=== PATIENT | female | born 1945 | race Caucasian/White ===

== ENCOUNTER 2024-12-02 13:13 | Outpatient (CLI) | payer MEDICARE, OTHER, SELFPAY ==
--- NOTE | 2024-12-02 13:23 | XR_ITS ---
WS: [id number] SCREENING DEXA SCAN [employer] CLINICAL INFORMATION: POST MENOPAUSAL STATE FINDINGS: The L1-L4 bone mineral density measures 1.018 g/cm2. This corresponds to a T score score of -1.4 and Z score of 0.3. Left femoral neck bone mineral density measures 0.835 g/cm2. This corresponds to a T score of -1.4 and Z score of 0.5. Right femoral neck bone mineral density measures 0.884 g/cm2. This corresponds to a T score -1.0of and Z score of 0.9. Mean femoral neck bone mineral density measures 0.860 g/cm2. This corresponds to a T score of -1.2 and Z score of 0.7. XR/XR DEXA axial skeleton* [id number] IMPRESSION: Osteopenia lumbar spine. Osteopenia femoral necks. Patient's FRAX calculated 10 year probability for major osteoporotic fracture i s 15.3% and osteoporotic hip fracture is 4.3%.
== END 2024-12-02 13:14 | disposition home or self-care (01) ==
LOC: RAD 13:18
PROVIDERS: PCP Physician Assistant; Visit Provider Physician Assistant
DX: Z13.820 Encounter for screening for osteoporosis (principal); Z78.0 Asymptomatic menopausal state; M85.89 Other specified disorders of bone density and structure, multiple sites
CPT/HCPCS: 77080

== ENCOUNTER 2024-12-09 17:48 | Emergency (ER) | payer MEDICARE, OTHER, SELFPAY ==
--- OUTSIDE RECORDS SUMMARY | 2023-12-02 03:00 | XMS_ITS ---
Author Organization [facility] Address [address] [place] [address] Care Team Providers Care Management Professionals Name Role Phone Arelis Crawford MD Primary Care Provider Unavailab Shahrzad Gonzalez Unavailable [phone] Migration, Provider Unavailable Unavailable REASON FOR VISIT EMR-Alberto Encounters Encounter Location Date Provider Diagnosis Migrated_Facility 0 0 12/02/2023 Provider Migration Plan Of Treatment Medication Medication Name Sig Start Date Stop Date Notes Gabapentin 600 MG Tablet 1 Capsule Twice a Day Oral 202110/11/2021 Meloxicam 15 MG Tablet 1 Tablet Once a Day Oral 07/13/2021 10/11/2021 tiZANidine HCl 4 MG Tablet 1 Tablet Every Night Oral 07/1310/11/2021 Progress Notes * Eduarda HOLLY LDOB:1945 (79 yo F)Acc No.[id number]:12/02/2023 Patient: Eduarda COTTRELL :1945 A ge:78 Y S ex:Female Address:[address] [place] [address] [place], [id number] * Refills Stop Gabapentin Tablet, 600 MG, Oral, 1 Capsule Twice a Day Stop Meloxicam Tablet, 15 MG, Oral, 1 Tablet Once a Day Stop tiZANidine HCl Tablet, 4 MG, Oral, 1 Tablet Every Night Subjective: * Chief Complaints: * E MR-Alberto * * Date:
--- OUTSIDE RECORDS SUMMARY | 2023-12-03 03:00 | XMS_ITS ---
Author Organization [facility] Address [address] [place] [address] Care Team Providers Care Internet Ecommerce Specialist Name Role Phone Arelis Crawford MD Primary Care Provider Unavailab Shahrzad Gonzalez Unavailable [phone] Migration, Provider Unavailable Unavailable Allergies Allergen (clinical drug ingredient) Drug/Non Drug Allergy documented on EMR Reaction Allergy Type Onset Date Status IV DYE, IODINE CONTAINING (uncoded) Unknown Allergy Active Substance with sulfonamide structure and antibacterial mechanism of action (substance) SULFA (SULFONAMIDE ANTIBIOTICS) (uncoded) Unknown Allergy Active lisinopril Lisinopril , Edema of face (finding) , Drug Allergy Active Iodine Unknown Drug Allergy Active Substance with sulfonamide structure and antibacterial mechanism of action (substance) Sulfa Antibiotics Unknown Drug Allergy Active REASON FOR VISIT EMR-Alberto Medications Medication SIG (Take, Route, Frequency, Duration) Notes Start Date End Date Status Amlodipine *Reorder from Ct dispan for eRx and Interaction Alerts* Active Social History Social History Additional Details Category Social Info Options Details Migrated Social History Migrated Social History Alcoholic beverages? - No, Applying for disability? - No, Currently on disability? - No, Drug or substance abuse? - No, exposure to toxins/poisonous substances at work - No, Involved in any legal proceedings or lawsuits? - No, Marital Status - , Nonprescription drug use? - No, Participation in detoxification or rehabilitation - No, Smoking - No, Smoking status (MU) - <BLANK>, Working currently? - No Encounters Encounter Location Date Provider Diagnosis Migrated_Facility 0 0 12/03/2023 Provider Migration Plan Of Treatment No Information Progress Notes * Eduarda HOLLYOB:1945 (79 yo F)Acc No.[id number]:12/03/2023 Patient: Eduarda COTTRELL :1945 A ge:78 Y S ex:Female Address:[address] [place] [id number] Subjective: * Chief Complaints: * E MR-Albetro * Medical History: Arthritis, C onstipation, H igh blood pressure, H istory of measles, mumps, or rubella, * Surgical History: Arthroscopic Surgery Gallbladder surgery * Family History: M igrated Family History: : Cancer, H eart disease. * Social History: M igrated Social History: M igrated Social History: Alcoholic beverages? - No, A pplying for disability? - No, C urrently on disability? - No, D rug or substance abuse? - No, e xposure to toxins/poisonous substances at work - No, I nvolved in any legal proceedings or lawsuits? - No, M arital Status - , N onprescription drug use? - No, P articipation in detoxification or rehabilitation - No, S moking - No, S moking status (MU) - <BLANK>, W orking currently? - No. * Medications: T akingAmlodipine , Notes to Pharmacist: *Reorder from [facility] for eRx and Interaction Alerts*Taking Amlodipine , Notes to Pharmacist: *Reorder from [facility] for eRx and Interaction Alerts* * Allergies: S ULFA (SULFONAMIDE ANTIBIOTICS): AllergyIV DYE, IODINE CONTAINING: AllergyLisinopril: , Edema of face (finding) , - AllergySulfa Antibiotics: AllergyIodine: Allergy * * Date:
[2024-12-09 17:44] VITALS: BP 183/80; PULSE 79; RESP 17; TEMP 36.6; O2SAT 99; BMI 25.7
--- NOTE | 2024-12-09 17:48 | CTR_ITS ---
PROCEDURE INFORMATION: Exam: CT Head Without Contrast Exam date and time: 12/09/2024 6:00 PM Age: 79 years old Clinical indication: Injury or trauma; PT arrives via EMS. PT was pulled by her dog, causing her to run with her dog which caused her to fall on her face. pt states she does not wish to take her wig off; Additional info: Fall, head injury TECHNIQUE: Imaging protocol: Computed tomography of the head without contrast. Radiation optimization: All CT scans at this facility use at least one of these dose optimization techniques: automated exposure control; mA and/or kV adjustment per patient size (includes targeted exams where dose is matched to clinical indication); or iterative reconstruction. COMPARISON: CT facial bones wo con* [id number] 12/09/2024 6:00 PM RADIATION DOSE METRICS: Total DLP (mGy-cm): 1117.9 FINDINGS: Brain: No edema, mass effect, or midline shift. No acute intracranial hemorrhage. Periventricular and deep white matter hypodensities compatible with chronic microvascular ischemic changes. Cerebral ventricles: No ventriculomegaly. Paranasal sinuses: Visualized sinuses are unremarkable. No fluid levels. Mastoid air cells: No mastoid effusion. Bones: Unremarkable. No acute fracture. Soft tissues: Unremarkable. CT/CT head wo con* [id number] IMPRESSION: No acute intracranial abnormality.
--- NOTE | 2024-12-09 17:48 | CTR_ITS ---
PROCEDURE INFORMATION: Exam: CT Maxillofacial Without Contrast Exam date and time: 12/09/2024 6:00 PM Age: 79 years old Clinical indication: Injury or trauma; PT arrives via EMS. PT was pulled by her dog, causing her to run with her dog which caused her to fall on her face. pt states she does not wish to take her wig off; Additional info: Trauamatic facial pain TECHNIQUE: Imaging protocol: Computed tomography of the face without contrast. Radiation optimization: All CT scans at this facility use at least one of these dose optimization techniques: automated exposure control; mA and/or kV adjustment per patient size (includes targeted exams where dose is matched to clinical indication); or iterative reconstruction. COMPARISON: CT head wo con* [id number] 12/09/2024 6:00 PM RADIATION DOSE METRICS: Total DLP (mGy-cm): 594.4 FINDINGS: Paranasal sinuses: No air-fluid levels. Orbital cavities: Orbits are normal. Globes are unremarkable. Bones: No acute facial fracture. Soft tissues: Mild paranasal edema. CT/CT facial bones wo con* [id number] IMPRESSION: Mild paranasal edema. No acute facial fracture.
--- OUTSIDE RECORDS SUMMARY | 2024-12-09 17:56 | XMS_ITS | Patient Health Record ---
Author Organization [facility] Address [address] [place] [address] Care Team Providers Care Telecom Analyst Name Role Phone Arelis Crawford MD Primary Care Provider Tory Moralesricia Unavailable [phone] Allergies Allergen (clinical drug ingredient) Drug/Non Drug Allergy documented on EMR Reaction Allergy Type Onset Date Status Substance with sulfonamide structure and antibacterial mechanism of action (substance) SULFA (SULFONAMIDE ANTIBIOTICS) (uncoded) Unknown Allergy Active lisinopril Lisinopril , Edema of face (finding) , Drug Allergy Active Iodinated contrast media (substance) Iodinated Diagnostic Agents Unknown Drug Allergy Active Iodine Unknown Drug Allergy Active Substance with sulfonamide structure and antibacterial mechanism of action (substance) Sulfa Antibiotics Unknown Drug Allergy Active Reason For Referral No Information Medications Medication SIG (Take, Route, Frequency, Duration) Notes Start Date End Date Status Vitamin B12 1000 MCG Tablet Extended Release 1 tablet Orally Once a day Active amLODIPine Besylate 5 MG Tablet 1 tablet Orally Once a day Active Gabapentin 600 MG Tablet 1 tablet Orally twice daily Active Calcium + D3 Active ZyrTEC 10 MG Tablet Chewable 1 tablet Orally Once a day Active Amlodipine *[email or web address] and Interaction Alerts* Active Meloxicam 15 MG Tablet 1 tablet Orally Once a day Active tiZANidine HCl 4 MG Capsule 1 capsule as needed Orally Three times a day Active Social History Tobacco Use: Social History Observation Description Date Details (start date - stop date) Never Smoker NA - NA Social History Drugs/Alcohol: Social Info Question Answer Notes Alcohol Screen (Audit-C) Did you have a drink containing alcohol in the past year? No Points 0 Interpretation Negative Tobacco Use: Social Info Question Answer Notes xTobacco Use/Smoking Are you a nonsmoker Additional Details Category Social Info Options Details [...] (MU) - <BLANK>, Working currently? - No zzMigrated Social History Migrated Socia l History Social History(Smoking(MU):):Smokin g Status: Non-smoker ;Social History(Second-hand Smoke Exposure):no ; Problems Problem Type SNOMED Code ICD Code Onset Dates Problem Status W/U Status Risk Notes Problem History of adenomatous polyp of colon (189935736) History of adenomatous polyp of colon (Z86.010) Active confirmed Plan Of Treatment No Information Insurance Providers Payer Name Payer Address Payer Phone Subscriber Number Group Number Insured Name Patient Relationship to Insured Coverage Start Date Coverage End Date RR Medicare [address] [address] [place] [phone] [id number] Avni Eduarda Self - patient is the insured [employer] [facility] [address] [place] [address] [id number] Avni Eduarda Self - patient is the insured Medical (General) History Medical History History ICD Code hypertension blood clot 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
--- OUTSIDE RECORDS SUMMARY | 2024-12-09 17:56 | XMS_ITS | Data Portability ---
Author Organization ESTRELLA [facility], [facility] Address [address] [facility] [facility] [address] [place] [address] Assessment No assessment recorded. Plan of Treatment Reminders Order Date Submit Date Provider Last Modified By Organization Details Last Modified Time Details Appointments [id number] 2025 08:40A M KARTHIK CAAL PA-C Not available Not available Not available Lab CMP, serum or plasma 2024 025 [facility], [address] [facility], [facility] [address], [place], [address], 11/14/2024 11:47:03 lipid panel, blood 2024 025 [facility], [address] [facility], [facility] [address], [place], [address], 11/14/2024 12:17:55 CBC 2024 025 [facility], [address] [facility], [facility], [place], [address], 11/14/2024 11:31:31 thyrotrop in, QN, serum or plasma 2024 025 [facility], [address] [facility], [facility] [address], [address], 11/14/2024 12:32:30 Referral None recorded. Procedures None recorded. Surgeries None recorded. [facility] [address] [facility], [place], [address], 11/27/2024 10:40:58 Medication Orders tizanidin e 4 mg tablet 2023 [facility] #[id number], [address], [place], [place], [id number], 12/05/2023 11:44:04 meloxicam 15 mg tablet 2023 [facility] #[id number], [address], [place], [place], [id number], 12/05/2023 11:44:04 gabapenti n 600 mg tablet 2023 [facility] #99853, [address], [place], [place], [id number], 12/05/2023 11:44:25 amlodipin e 5 mg tablet 2023 [facility] #62625, [address], [place], [place], [id number], 12/05/2023 11:44:06 triamcino lone acetonide 0.1 % topical cream 2023 [facility] #10921, [address], [place], [place], [id number], 11/14/2024 10:22:10 Patient TargetsNo targets recorded. Patient InstructionsNo instructions recorded. Reason for Referral None Reported. Results Created Date Observation Date Name Description Value Unit Range Abnormal Flag Note LastModifiedBy Organization Detail LastModifiedTime 11/08/1911/14/2024 CBC WBC 7.0 x10 4.0-10 .5 Not Available [facility] [address] [facility] [address], [place], [address], 11/14/2024 11:31:30 11/08/1911/14/2024 CBC RBC 4.93 x10 3.50-5 .50 Not Available [facility] [address], [place], [address], 11/14/2024 11:31:30 11/08/1911/14/2024 CBC HGB 14.6 g/dL 12.0-1 6.0 Not Available [facility] [address], [place], [address], 11/14/2024 11:31:30 11/08/1911/14/2024 CBC HCT 45.0 % 37.0-4 7.0 Not Available [facility] [address], [place], [address], 11/14/2024 11:31:30 11/08/1911/14/2024 CBC MCV 91.2 fL 80.0-9 9.9 Not Available [facility] [address] [facility], [place], [address], 11/14/2024 11:31:30 11/08/1911/14/2024 CBC MCH 29.6 pg 27.0-3 2.0 Not Available [facility] [address] [facility], [place], [address], 11/14/2024 11:31:30 11/08/1911/14/2024 CBC MCHC 32.4 g/dL 32.0-3 6.0 Not Available [facility] [address] [facility], [place], [address], 11/14/2024 11:31:30 11/08/1911/14/2024 CBC RDW 13.3 % 11.5-1 4.5 Not Available [facility] [address] [facility], [place], [address], 11/14/2024 11:31:30 11/08/19 25 11/14/2024 CBC plt 264.1 x10 140.0- 451.0 Not Available [facility] [address] [facility], [place], [address], 11/14/2024 11:31:30 11/08/1911/14/2024 CBC lymphocytes % 35.9 % 20.0-5 0.0 Not Available [facility] [address] [facility], [place], [address], 11/14/2024 11:31:30 11/08/1911/14/2024 CBC granulcytes % 52.4 % 30.0-7 0.0 Not Available [facility] [address] [facility], [place], [address], 11/14/2024 11:31:30 11/08/1911/14/2024 CBC monocytes % 9.2 % 2.0-16 .0 Not Available [facility] [address] [facility], [place], [address], 11/14/2024 11:31:30 11/08/19 25 11/14/2024 CBC granulcytes# 3.7 x10 Not Christy ilable [facility] [address] [facility], [place], [address], 11/14/2024 11:31:30 11/08/1911/14/2024 CBC lymphocytes # 2.5 x10 Not Available [facility] [address] [facility], [place], [address], 11/14/2024 11:31:30 11/08/19 25 11/14/2024 CBC monocytes # 0.7 x10 Not Avai lable [facility] [address] [facility], [place], [address], 11/14/2024 11:31:30 11/08/1911/14/2024 CMP (FEMA LE) glucose 98.0 mg/dL 60.0-9 9.0 Not Available [facility] [address] [facility] [address] [facility], [place], [address], 11/14/2024 11:47:03 11/08/1911/14/2024 CMP (FEMA LE) BUN (blood urea nitrogen) 26.0 mg/dL 10.0-2 6.0 Not Available [facility] [address] [facility], [place], [address], 11/14/2024 11:47:03 11/08/1911/14/2024 CMP (FEMA LE) creatinine (serum) 0.9 mg/dL 0.4-1. 5 Not Available [facility] [address] [facility], [place], [address], 11/14/2024 11:47:03 11/08/1911/14/2024 CMP (FEMA LE) BUN/creatini ne ratio 28.89 ratio Not Available [facility] [address] [facility] [address], [place], [address], 11/14/2024 11:47:03 11/08/1911/14/2024 CMP (FEMA LE) eGFR calculated 64.0 Not Available [facility] [address] [facility] [address], [place], [address], 11/14/2024 11:47:03 11/08/1911/14/2024 CMP (FEMA LE) total protein 7.7 g/dL 6.0-8. 5 Not Available [facility] [address] [facility] [address], [place], [address], 11/14/2024 11:47:03 11/08/1911/14/2024 CMP (FEMA LE) total bilirubin 0.6 mg/dL 0.2-1. 3 Not Available [facility] [address] [facility], [place], [address], 11/14/2024 11:47:03 11/08/1911/14/2024 CMP (FEMA LE) albumin 4.7 g/dL 3.5-5. 5 Not Available [facility] [address] [facility], [place], [address], 11/14/2024 11:47:03 11/08/1911/14/2024 CMP (FEMA LE) globulin 3.0 calc Not Available [facility] [address] [facility] [address], [place], [address], 11/14/2024 11:47:03 11/08/1911/14/2024 CMP (FEMA LE) AST (SGOT) 31.0 U/L 0.0-46 .0 Not Available [facility] [address] [facility], [place], [address], 11/14/2024 11:47:03 11/08/19 25 11/14/2024 CMP (FEMA LE) altv (SGPT) 25.0 U/L 13.0-6 9.0 normal Not Available [facility] [address] [facility], [place], [address], 11/14/2024 11:47:03 11/08/1911/14/2024 CMP (FEMA LE) A/G ratio 1.6 ratio Not Available [facility] [address] [facility], [place], [address], 11/14/2024 11:47:03 11/08/1911/14/2024 CMP (FEMA LE) ALP phos 64.0 U/L 30.0-1 40.0 normal Not Available [facility] [address] [facility] [address] [facility], [place], [address], 11/14/2024 11:47:03 11/08/1911/14/2024 CMP (FEMA LE) calcium 9.9 mg/dL 8.4-10 .5 Not Available [facility] [address] [facility], [place], [address], 11/14/2024 11:47:03 11/08/1911/14/2024 CMP (FEMA LE) sodium 139.0 mmol/ L 136.0- 145.0 Not Available [facility] [address] [facility], [place], [address], 11/14/2024 11:47:03 11/08/1911/14/2024 CMP (FEMA LE) potassium 4.5 mmol/ L 3.5-5. 1 Not Available [facility] [address] [facility], [place], [address], 11/14/2024 11:47:03 11/08/1911/14/2024 CMP (FEMA LE) chloride 104.0 mmol/ L 98.0-1 10.0 normal Not Available [facility] [address] [facility], [place], [address], 11/14/2024 11:47:03 11/08/1911/14/2024 CMP (FEMA LE) C02 27.0 mmol/ L 22.0-3 1.0 Not Available [facility] [address] [facility], [place], [address], 11/14/2024 11:47:03 11/08/1911/14/2024 CMP (FEMA LE) anion gap 8.0 calc Not Available [facility] [address] [facility], [place], [address], 11/14/2024 11:47:03 11/08/1911/14/2024 CMP (FEMA LE) osmolality 291.6 calc Not Available [facility] [address] [facility], [place], [address], 11/14/2024 11:47:03 11/08/1911/14/2024 LIPID PROFI LE (FEMA LE) cholesterol 232.0 mg/dL 0.0-20 0.0 high Not Available [facility] [address] [facility] [address], [place], [address], 11/14/2024 12:17:55 11/08/1911/14/2024 LIPID PROFI LE (FEMA LE) trig 277.0 mg/dL 0.0-15 0.0 high Not Available [facility] [address] [facility] [address], [place], [address], 11/14/2024 12:17:55 11/08/1911/14/2024 LIPID PROFI LE (FEMA LE) HDL - direct 51.0 mg/dL >40.0 Not Available [facility] [address] [address], [place], [address], 11/14/2024 12:17:55 11/08/1911/14/2024 LIPID PROFI LE (FEMA LE) VLDL - direct 55.4 mg/dL Not Available [facility] [address] [address], [place], [address], 11/14/2024 12:17:55 11/08/1911/14/2024 LIPID PROFI LE (FEMA LE) LDL - direct 125.6 mg/dL 0.0-13 0.0 Not Available [facility] [address] [address], [place], [address], 11/14/2024 12:17:55 11/08/1911/14/2024 TSH TSH 2.50 uIU/m L 0.49-3 .82 Not Available [facility] [address] [facility] [address], [place], [address], 11/14/2024 12:32:30 12/03/1912/02/2024 DEXA No observ ation record ed. [facility] [address] [facility], [place], [address], 12/02/2024 17:10:54 Result Notes None recorded. Problems Name Problem SNOMED Code Status Onset Date Resolution Date Notes Provider Name and Address Organization Details Recorded Time Lumbar radiculopathy 157303431 Active 2023 MILADYS LY [facility] 4 05:54:38 Hypertensive disorder 02534479 Active 2023 MILADYS LY [facility], [facility] 4 05:54:48 Bone cyst 536885819 Active 2023 jaw MILADYS LY [facility] 4 05:55:47 Problem Notes None recorded. Procedures Surgical History Date Name Laterality Status Provider Name and Address Organization Details Recorded Time 5 bone density scan completed MILADYS LY [facility] 12/02/2024 17:08:27 4 Colonoscopy completed KARTHIK CAAL PA-C [address] [place], [address], [facility] 12/05/2023 11:23:03 Imaging Results None recorded. Procedure Notes None recorded. Medical Equipment None Reported. Allergies Allergen ID Allergen Name Allergen Category Reaction Reaction Severity Criticality Documentation Date Start Date Code Code System Note Provider Name and Address Organization Details Recorded Time 60316 lisinopri l medicatio n angioedem a Not available Not available 12/05/2023 29315 RxNorm MILADYS BASSETTFABRICIO [facility] 4 11:10:19 06761 Substance with sulfonami de structure and antibacte rial mechanism of action (substanc e) medicatio n nausea Not available Not available 12/05/2023 04806 8003 SNOMED MILADYS BASSETTFABRICIO [facility] 4 11:10:34 70779 Iodinated contrast media (substanc e) medicatio n hives Not available Not available 12/05/2023 54647 2004 SNOMED MILADYS BASSETTFABRICIO [facility] 4 11:10:53 Medications Name Sig Start Date Stop Date Status Note LastModified by Organization Details LastModified Time gabapentin 600 mg tablet Take 1 tablet twice a day by oral route for 90 days. active Not Available Not Available No t Available tizanidine 4 mg tablet Take 1 tablet every day by oral route as needed for 90 days. active Not Available Not Available No t Available meloxicam 15 mg tablet Take 1 tablet every day by oral route for 90 days. active Not Available Not Available No t Available Zyrtec 10 mg tablet Take 1 tablet every day by oral route. active Not Available Not Available No t Available amlodipine 5 mg tablet Take 1 tablet every day by oral route for 90 days. active Not Available Not Available No t Available triamcinolo ne acetonide 0.1 % topical cream APPLY A THIN LAYER TO THE AFFECTED AREA(S) BY TOPICAL ROUTE 2 TIMES PER DAY 11/14 completed Not Available Not Available Not Available amlodipine 10 mg tablet Take 5 mg every day by oral route. 12/04 completed Not Available Not Available Not Available gabapentin 300 mg capsule Take 2 capsules twice a day by oral route. 12/04 completed 600mg bid Not Available Not Available Not Available pregabalin 50 mg capsule TAKE ONE CAPSULE BY MOUTH ONCE DAILY 12/04 completed Not Available Not Available Not Available Calcium 600-D3 Plus (mag-zinc) 1 bid active Not Available Not Available N ot Available B12 Active 1,000 mcg chewable tablet Take 1 tablet every day by oral route. active Not Available Not Available No t Available Vitals Date Recorded Body height Body mass index (BMI) Body weight Oxygen saturation Oxygen saturation in Arterial blood by Pulse oximetry Heart rate Respiratory rate Body temperature Systolic And Diastolic Provider Name and Address Organization Details Last Updated DateTime 5 166.37 cm 25.9 kg/m2 74385.5 9 g 99 % 99 % 72 /min 18 /min 98 [degF] 126/70 mm[Hg] MILADYS LY [facility] 5 10:15:44 Date Recorded Body weight Body mass index (BMI) Body height Oxygen saturation Oxygen saturation in Arterial blood by Pulse oximetry Heart rate Body temperature Respiratory rate Systolic And Diastolic Provider Name and Address Organization Details Last Updated DateTime 4 02560 g 25.7 kg/m2 166.37 cm 99 % 99 % 76 /min 97 [degF] 20 /min 122/70 mm[Hg] MILADYS MCINTYREFABRICIO [facility] 4 11:02:32 Social History Question Answer Notes LastModified by Organizat ion Details LastModified Time Tobacco Smoking Status Never Smoker KARTHIK CAAL PA-C [address] [place] [address], [phone], [facility] 11/14/2024 10:49:53 What Was The Date Of Your Most Recent Tobacco Screening? 11/14/2024 Information not available 11/14/2024 Sex: Unknown Functional Status Question Answer Note LastModified by Organization D etails LastModified Time Do you or have you ever used any other forms of tobacco or nicotine? No Information not available 11/14/2024 Do you or have you ever used any nicotine-free cigarettes, vape, or chewing tobacco? No [email or web address] Information not available 11/14/2024 Mental Status None recorded. Family History Relationship Description Onset Age of this Age Resolved Age Notes LastModified by Organization Details LastModified Time Mother Hypertensive disorder Not available 2024 10:49:13 Father Arthritis [email or web address] Not availab le 11/14/2024 10:49:13 Medical History Condition Response Coronary Artery Disease N Other N Gout N Kidney Stones N Blood Diseases N Hyperthyroidism N Breast Cancer N Blood Transfusion N Hypothyroidism N Depression N COPD N Lung Disease N Defects or Inherited Disease N Developmental or Behavioral Disorders N Breast Problem N Difficulty Swallowing N Anesthesia Complications N Meniere's disease N Anxiety Disorder N Muscle, Joint, or Bone Problems N Vision or Eye Problems Y Arthritis Y Polyps N Infertility Y Cancer N Varicosities N Stroke N Endometriosis N Bladder or Kidney Problems N High Cholesterol Y Liver Disease N Headaches N Fibromyalgia N Kidney Disease N Allergies/Hayfever Y Heart Problems N Ear or Hearing Problems N Fatigue N Hospitalizations N Thyroid Problems N GI Problems N ADD/ADHD N Skin Problems N Eating Disorder N Anemia N Constipation N Mental Illness N Ovarian Cancer N Diabetes N Bedwetting N Seizures/Epilepsy N Tuberculosis N Pain N Eczema N Diverticulitis N Abuse/Domestic Violence N Asthma N Reflux/GERD N Hepatitis N Heart Disease N Pulmonary Embolism N Chronic Ear Infections N Pre-Eclampsia N Hypertension Y Chicken Pox Y Autism Spectrum Disorder (ASD) N Osteoporosis N Thrombophilias N Gynecological HistoryNo gynecological history recorded. Obstetrics History GPAL:G 0 P 0 0 0 0 Immunizations Vaccine Type Date Status Note Provider Nam e and Address Organization Details Recorded Time Influenza, adjuvanted, trivalent, PF 5 completed MILADYS damon [facility] 11/14/2024 11:35:59 Influenza, adjuvanted, trivalent, PF 4 completed MILADYS damon [facility] 12/05/2023 11:59:30 Pneumococcal conjugate PCV20, polysaccharide VTO118 conjugate, adjuvant, PF 4 completed MILADYS damon [facility] 12/05/2023 11:59:30 Past Encounters Encounter ID Performer Location Encounter Start Date Encounter Closed Date Diagnosis/Indication Diagnosis SNOMED-CT Code Diagnosis ICD10 Code Diagnosis IMO Codes Diagnosis Note [id number] KARTHIK CAAL PA-C [facility] ([facility]) [address] [place] [address] 12/05/2023 10:46:25 12/05/2023 11:46:11 Essential hypertension 41814505 I10 Lumbar radiculopathy 128 274775 M54.16 Insect sting 910892962 T 63.481A Administra tion of influenza vaccine 22248757 Z23 Administra tion of pneumococcal vaccine 22921109 Z23 [id number] KARTHIK CAAL PA-C [facility] ([facility]) [address] [place] [address] 11/14/2024 10:07:05 11/14/2024 10:58:35 Physical examination 0255496 Z00.00 394350 Hypertensive disorder 38 928795 I10 Lumbar radiculopathy 128 943231 M54.16 Requires i nfluenza virus vaccination 338471622 Z23 156884 [facility] state 764 [address] Z78.0 166677 Counseling 697775439 Z71 .89 [id number] pt has her advanced directives in place. Health Concerns Section Related Observation LastModified by Organization Detai ls LastModified Time None Recorded Concern Status LastModified by Organization Details LastModified Time None Recorded Advance Directives Directive None Recorded Payers Insurance Date Sequence Insurance Name Policy Number Policy Gorman Covered Member ID Gorman Member ID Guarantor Name 11/14/2024 2 [facility] [id number] [facility] 11/14/2024 1 [place] [facility] [id number] [facility] 11/11/2024 [place] - [place] - [id number] (MEDICARE) [facility] [id number] [facility] System 11/20/2024 1 [place] [employer] - MEDICARE-RAILR OAD SKILLED NURSING BOARD (MEDICARE) [facility] [id number] 4 Health System 11/14/2024 2 [employer] (MEDICARE REPLACEMENT/AD VANTAGE - PPO) [facility] [id number] [facility] System Notes Date Note Type Note Provider Name and Address Organization Details Recorded Time 4 text/html Skin LesionReported by PatientHPIFor location, patient reportshand(left). For quality, patient reportstender,sore, anditchy. For severity, patient reportsmoderate. For duration, patient reportsstarted: ___and1 weeks. For timing, patient reportsconstantandoccurr ed 1 times. For aggravating factors, patient reportsnone. For context, (tiny bee sting). HypertensionReported by PatientHPIFor quality, patient reportspressureandweakne ss. For context, patient reportsexertion. For severity, patient reportselevated (120-129/<80). For duration, patient reportshas noted for years. For onset/timing, patient reportsgradual onset. For alleviating factors, patient reportsrestandmedication . For self care, patient reportsblood pressure goal: 120/70. For associated symptoms, patient reportsno shortness of breath,no fatigue,no palpitations,no decrease in exercise tolerance, andno snoring. establish with Franky from [place].Hx of LBP with radiculopathy went to PT, [facility], MRI of of lumbar spine and saw pain tx. Takes meloxicam and gabapentin with it.HTN well controlled wtih NorvascHx of maxillary mishel lesion. Dr. Banerjee they do not think it is cancerous. will see his office annually.colonoscopy Mar 01 KARTHIK CAAL PA-C [address] [place] [address], [phone], [facility], [facility] 12/05/2023 11:44:16 5 text/html Medicare Annual Wellness VisitReported by PatientSocial/Behavioral HistoryFor diet and nutrition, patient reportshealthy diet,discussed vitamin and supplement use,discussed portion control,discussed maintaining calcium balance, anddiscussed diet improvement. For fracture risk, patient reportsno history of fractures,no recent explained fracture,no sudden unexplained fractures, andno previous musculoskeletal injuries. For physical activity, patient reportsexercises on a regular basis,discussed weightbearing activities, anddiscussed exercise habits.Mental Status:For depression risk, patient reportsnever feels sad, empty, or tearful,no loss of interest in activities,no significant changes in weight,no sleep disturbances or insomnia,no agitation,no loss of energy,no feelings of worthlessness or guilt,no thoughts of suicide,no history of depression, andno history of mood disorders. For orientation, patient reportsno disorientation to time,no disorientation to date, andno disorientation to place. For concentration and memory, patient reportsno decreased concentrating ability,no memory lapses or loss, anddoes not forget words. For speech/motor difficulties, patient reportsno speech difficulties,no difficulty expressing formulated concepts,no difficulty with fine manipulative tasks,no difficulty writing/copying,no slowed reaction time, anddoes not knock things over when trying to pick them up.Functional AbilityFor vision, patient reportsworse both distance and near(wears glasses). For hearing, patient reportsno loss of hearing. For activities of daily living, patient reportsable to bathe with limited or no assistance,able to contol urination and bowels,able to dress with limited or no assistance,able to feed self with limited or no assistance,able to get out of chair or bed with limited or no assistance,able to groom with limited or no assistance, andable to toilet with limited or no assistance. For instrumental activities of daily living, patient reportsable to do house work with limited or no assistance,able to grocery shop with limited or no assistance,able to manage medications with limited or no assistance,able to manage money with limited or no assistance,able to prepare meals with limited or no assistance, andable to use the phone with limited or no assistance. For falls risk assessment, patient reportsno frequent falls while walking,no dizziness/vertigo,fall(s ) in the past year 0, andfall(s) since last visit0. For home safety, patient reportsno unsafe wilson hazzards,no unsafe stairs,working smoke/co detectors,use of seatbelts,has hand bars in the bathroom/shower,good lighting in the home,reviewed sun protection, andnumber of motor vehicle accidents 0. I would like to have labs done while I am here I am not fasting KARTHIK CAAL PA-C [address] [place] [address], [phone], [facility] 11/14/2024 10:51:15 OBGyn Episode No OBEpisode recorded.
--- NOTE | 2024-12-09 18:00 | W.ED.FALL ---
HPI - Fall General: Chief Complaint: Fall Stated Complaint: fall - face injury History of Present Illness: 79-year-old female with a history of hypertension who presents to the emergency room after she fell and struck her face, particularly her nose. She presents by ambulance from home. She is not anticoagulated. She did not lose consciousness. She had some abrasions on her forehead and her nose with some swelling of her nose but no obvious displacement. No loss of consciousness. No altered mental status. No extremity injuries. No headache. No nausea or vomiting. No altered mental status. Related Data Allergies Allergy/AdvReac Type Severity Reaction Status Date / Time Iodinated Contrast Media Allergy ALGY-Hives Verified 12/09/24 17:46 lisinopril Allergy ALGY-Hives Verified 12/09/24 17:46 Sulfa (Sulfonamide Allergy ADR-Gastrointestinal Verified 12/09/24 17:46 Antibiotics) Upset Review of Systems Narrative: Constitutional symptoms: Negative except as documented in HPI. Skin symptoms: Negative except as documented in HPI. Eye symptoms: Negative except as documented in HPI. ENMT symptoms: Negative except as documented in HPI. Respiratory symptoms: Negative except as documented in HPI. Cardiovascular symptoms: Negative except as documented in HPI. Gastrointestinal symptoms: Negative except as documented in HPI. Genitourinary symptoms: Negative except as documented in HPI. Musculoskeletal symptoms: Negative except as documented in HPI. Neurologic symptoms: Negative except as documented in HPI. Psychiatric symptoms: Negative except as documented in HPI. Endocrine symptoms: Negative except as documented in HPI. Physical Exam Narrative: EXAM NARRATIVE: General: Alert, no acute distress. Skin: warm and dry Head: Normocephalic, swelling of the nasal bridge, abrasions across the top of the nose and the forehead. Neck: Trachea midline Eye: Extraocular movements are intact. Ears, nose, mouth and throat: Oral mucosa moist Respiratory: Respirations are non-labored Musculoskeletal: Normal ROM Gastrointestinal: Abdomen does not appear distended Neurological: Alert and oriented, No focal neurological deficit observed. Psychiatric: Cooperative, appropriate mood & affect. Course Vital Signs: Vital signs: Vital Signs Temperature 97.8 F 12/09/24 17:44 Pulse Rate 79 12/09/24 17:44 Respiratory Rate 17 12/09/24 17:44 Blood Pressure 183/80 12/09/24 17:44 Pulse Oximetry 99 12/09/24 17:44 Oxygen Delivery Me thod Room Air 12/09/24 17:44 MDM - Fall Medical Decision Making Medical decision making: Patient's reason for coming to the emergency room Social determinants: Retired and . No concerns. I reviewed the patient's medical record. No previous visits to this emergency room or this facility. I reviewed the patient's current home meds Patient is not currently on any anticoagulation Alternate historians: None Differential diagnosis including but not limited to and based on the above HPI, review of systems and physical exam: patient with fall and head injury. Subdural hematoma, subarachnoid hemorrhage, concussion, skull fracture. Orders placed to evaluate differential diagnosis based on the above differential, HPI and physical exam CT scan of the head was ordered. CT head: No acute intracranial process. No intracranial hemorrhage, no evidence of infarct. No evidence of acute fracture. This was reviewed and interpreted by myself the emergency room physician. I also reviewed the radiology report. CT of the facial bones: Paranasal edema but no acute fractures. This was reviewed and interpreted by myself the emergency room physician. I also reviewed the radiology report. Lab Review: Laboratory results were reviewed and interpreted by myself the emergency room physician. Assessment of risk: Level of risk: Mild Hospitalization considerations: Would consider hospitalization or transfer if she had had intracranial hemorrhage but she does not Reexamination: Patient remained stable. No increased work of breathing. No altered mental status. No focal motor deficits. Assessment and plan: Fall Nasal injury Head injury - Discharged home - Discussed plan with patient. Answered any questions. - Evaluation and treatment of this problem were appropriate in the emergency setting. Lab Data Radiology Impressions Face CT 12/09/24 17:48 IMPRESSION: Mild paranasal edema. No acute facial fracture. Head CT 12/09/24 17:48 IMPRESSION: No acute intracranial abnormality. All radiology interpretation(s) finalized by discharge Discharge Plan Discharge Patient Disposition: Home Clinical Impression: Injury of nose, Fall Condition: Stable Discharge Orders: Discharge ED (Routine); Ordered 12/09/24 Ordered By: Ledy Gambino Referrals: Violeta Lynn PA [Primary Care Provider, [facility] [employer]] Discharge Diet: Usual diet Discharge Activity: Increase activity as tolerated Patient Instructions: Fall Prevention for Older Adults (ED), Opioid Safety, Pain Management, Patient Portal & Josue Instructions Activity Restrictions/Additional Instructions: Thank you for choosing [facility] for your healthcare needs today. You have been screened and evaluated and felt safe for discharge. Health conditions do change or evolve sometimes and as such it is important that you follow up with your Primary Doctor to be re checked, 3-5 days is a general good time frame for follow up. You are always welcome to return to the ED for re assessment if your symptoms are worsening or you have new concerns Print Language: Greek Coding Level of Care Code ED Electrician Station Assistant for Anatoly Rodriguez
[2024-12-09 18:51] VITALS: BP 164/86; PULSE 71; RESP 16; O2SAT 97
== END 2024-12-09 18:50 | disposition home or self-care (01) ==
PROVIDERS: Emergency Provider Emergency Medicine; PCP Physician Assistant
DX: S09.92XA Unspecified injury of nose, initial encounter (principal); W19.XXXA Unspecified fall, initial encounter; Z79.01 Long term (current) use of anticoagulants
CPT/HCPCS: 70450; 70486; 99284